=== PATIENT | female | born 1950 | race Caucasian/White ===

== ENCOUNTER → 2022-05-19 14:58 | Outpatient (BNVA) | payer OTHER, SELFPAY | PROVIDERS: PCP Family Medicine; Visit Provider Family Medicine | DX: Z00.00 Encounter for general adult medical examination without abnormal findings (principal); I10 Essential (primary) hypertension; E78.5 Hyperlipidemia, unspecified; E03.9 Hypothyroidism, unspecified; Z79.899 Other long term (current) drug therapy; G89.29 Other chronic pain; G47.30 Sleep apnea, unspecified; G47.00 Insomnia, unspecified; F98.8 Other specified behavioral and emotional disorders with onset usually occurring in childhood and adolescence; F31.9 Bipolar disorder, unspecified; M79.7 Fibromyalgia; N32.81 Overactive bladder; Z76.89 Persons encountering health services in other specified circumstances | CPT/HCPCS: 80053; 80061; 80307; 84443 ==

== ENCOUNTER 2022-06-01 12:53 | Outpatient (CLI) | payer MEDICARE, SELFPAY ==
--- NOTE | 2022-06-01 13:02 | XR_ITS ---
WS: [id number] DEXA (DUAL ENERGY X-RAY ABSORPTIOMETRY) Bone mineral density was performed using a [employer] machine. HISTORY: osteoporosis screening COMPARISON: None available. Lumbar spine BMD (L1-L4): 1.356 g/cm2 T score: 1.5 Z score: 2.1 Total hip BMD: Left: 1.061 g/cm2. T score: 0.4 Z score: 1.3 Right: 1.050 g/cm2. T score: 0.3 Z score: 1.3 10 year probability of a major osteoporotic fracture is 13.8%. XR/XR DEXA axial skeleton* [id number] IMPRESSION: NORMAL BONE MINERAL DENSITY based upon the WHO classification for females.
== END 2022-06-01 12:54 | disposition home or self-care (01) ==
LOC: RAD 12:56
PROVIDERS: PCP Family Medicine; Visit Provider Family Medicine
DX: Z78.0 Asymptomatic menopausal state (principal)
CPT/HCPCS: 77080

== ENCOUNTER 2022-06-19 13:56 | Outpatient (CLI) | payer MEDICARE, SELFPAY ==
--- NOTE | 2022-06-19 14:11 | XR_ITS ---
WS: [id number] Left knee, 3 views, 06/19/2022 Clinical Data: left knee pain swelling Comparison: None. Findings: No fractures or dislocations are seen. There is medial joint compartment narrowing with spurring of t he medial tibial plateau and of the lateral femoral condyle. There are small spurs of the posterior p atella. The patella is intact. The soft tissues are unremarkable. XR/XR knee LT 3V* [id number] Impression: Mild osteoarthritis of the left knee Kellgren-Chas Classification: grade 2 (minimal): definite osteophytes and p ossible joint space narrowing
== END 2022-06-19 13:57 | disposition home or self-care (01) ==
LOC: RAD 14:07
PROVIDERS: PCP Family Medicine; Visit Provider Family Medicine
DX: M17.12 Unilateral primary osteoarthritis, left knee (principal)
CPT/HCPCS: 73562

== ENCOUNTER 2022-06-24 15:35 | Outpatient (CLI) | payer MEDICARE, SELFPAY ==
--- NOTE | 2022-06-24 15:44 | XR_ITS ---
WS: [id number] Lumbar spine with flexion and extension, lateral, 06/24/2022r Clinical Data: VERTEBROGENIC LOW BACK PAIN Comparison: None. Findings: No compression fractures are seen. There is an anterior subluxation of 0.8 cm of L5 on S1. There is d egenerative disc narrowing at L4-L5 and L5-S1. There is anterior osteoarthritic spurring of all the l umbar vertebral bodies.. No limitation of motion or change in subluxation is seen. There is calcification of the wall of the abdominal aorta but no aneurysm. XR/XR lumbar spine f/e only [id number] Impression: 1. Degenerative disc narrowing at L4-L5 and L5-S1 with moderate osteoarthritis of the lumbar vertebral bodies. 2. Anterior subluxation of 0.8 cm of L5 on S1. 3. No change in subluxation or limitation of motion on flexion or extension.
== END 2022-06-24 15:36 | disposition home or self-care (01) ==
LOC: RAD 15:40
PROVIDERS: PCP Family Medicine; Visit Provider Family Medicine
DX: M54.51 Vertebrogenic low back pain (principal)
CPT/HCPCS: 72120

== ENCOUNTER 2022-07-14 15:26 | Outpatient (CLI) | payer MEDICARE, SELFPAY ==
--- NOTE | 2022-07-14 15:36 | CT_ITS ---
WS: [id number] CT LUMBAR SPINE, noncontrast. HISTORY: VERTEBROGENIC LOW BACK PAIN TECHNIQUE: Contiguous 2.0 mm axial imaging are performed. Sagittal and coronal reformats are submitte d and reviewed. All CT scans at [facility] use at least one of these dose optimization techni ques: automated exposure control; mA and/or kV adjustment per patient size (includes targeted exams w here dose is matched to clinical indication); or iterative reconstruction. IV contrast: None DLP: 964.29 mGy.cm COMPARISON: Radiographs 06/24/2022 Curvature and increased lumbar lordosis of the lumbar spine. No fractures are identified. There is mi ld diffuse osteopenia. 3 mm anterolisthesis of L5. No pars defects. Mild bilateral facet joint arthri tis. Mild narrowing of the disc spaces throughout the lumbar spine. L1-2: Normal. L2-3: Mild osteophytic ridging and disc bulging. There is mild RIGHT foraminal narrowing. No high-gra de stenosis. L3-4: Mild annular disc bulging asymmetric to the LEFT. LEFT foraminal disc protrusion with small ost eophytes. No significant stenosis. L4-5: Marked annular disc bulging with ligamentum flavum and facet disease. Central disc protrusion e ncroaches upon the ventral thecal sac. Slightly greater encroachment upon the RIGHT subarticular rece ss. Moderate to severe facet joint arthritis. Small vertebral body osteophytes. Moderate to severe ce ntral and bilateral subarticular recess encroachment. Most significant encroachment is upon the trave rsing L5 nerve roots. There is mild bilateral foraminal stenosis. L5-S1: Diffuse annular disc bulging with osteophytic ridging. Mild bilateral foraminal and subarticul ar recess encroachment. Marked facet joint arthritis. Facet joints demonstrate moderate arthropathy w ith sclerosis. There is disc and osteophyte encroachment upon the S1 nerve roots bilaterally. Mild bi lateral foraminal stenosis. Moderate atherosclerotic plaque throughout the visualized aorta. Mild SI joint arthritis. CT/CT lumbar spine wo con* [id number] IMPRESSION: 1. Mild curvature of the lumbar spine with increased lordosis. 2. L5 anterolisthesis by 3 mm. 3. Moderate to severe central and bilateral subarticular recess stenosis at L4 -5. More significant encroachment upon the traversing L5 nerve roots. There is also mild bilateral foraminal stenosis L4-5. 4. Mild bilateral foraminal and subarticular recess stenosis at L5-S1. Mild en croachment upon the S1 nerve roots. 5. Mild RIGHT foraminal stenosis at L2-3. 6. Small LEFT foraminal disc protrusion at L3-4 without nerve root encroachmen t. 7. Marked facet joint arthritis L4-5 and L5-S1.
== END 2022-07-14 15:27 | disposition home or self-care (01) ==
LOC: RAD 15:31
PROVIDERS: PCP Family Medicine; Visit Provider Nurse Practitioner
DX: M48.061 Spinal stenosis, lumbar region without neurogenic claudication (principal); M40.56 Lordosis, unspecified, lumbar region; M51.26 Other intervertebral disc displacement, lumbar region; M47.817 Spondylosis without myelopathy or radiculopathy, lumbosacral region
CPT/HCPCS: 72131